=== PATIENT | female | born 1995 | race Caucasian/White ===

== ENCOUNTER 2020-01-01 01:46 | Observation (INO) | payer BC ==
[2020-01-01] MEDS ORDERED: hydrOXYzine HCl 25 MG Tab PO PRN (02:23)
[2020-01-01] MEDS ORDERED: Misoprostol 400 MCG (4 X 100 MCG TAB) RECTAL PRN (06:19)
[2020-01-01] MEDS ORDERED: Acetaminophen 325 MG Tab PO PRN (06:19)
[2020-01-01] MEDS ORDERED: Lidocaine 1% 30 ML SDV INJECT PRN (06:19)
[2020-01-01] MEDS ORDERED: Ondansetron 4 MG/2 ML SDV IVPUSH PRN (06:19)
[2020-01-01] MEDS ORDERED: Tranexamic Acid 1,000 MG in Sodium Chloride 0.9% 100 ML IV PRN (06:19)
[2020-01-01] MEDS ORDERED: Lactated Ringers 1,000 ML IV ONE (06:19)
[2020-01-01] MEDS ORDERED: Carboprost Tromethamine 250 MCG/1 ML Amp IM PRN (06:19)
[2020-01-01] MEDS ORDERED: Methylergonovine 0.2 MG/1 ML Amp IM PRN (06:19)
[2020-01-01] MEDS ORDERED: Sodium Chloride 0.9% 10 ML Syringe FLUSH PRN (06:19)
[2020-01-01] MEDS ORDERED: ePHEDrine 50 MG/ML SDV IVPUSH PRN (06:21)
[2020-01-01] MEDS ORDERED: Promethazine 25 MG/ML SDV IM PRN (06:21)
[2020-01-01] MEDS ORDERED: Naloxone 2 MG/2 ML Syringe IVPUSH PRN (06:21)
[2020-01-01] MEDS ORDERED: Oxytocin/Normal Saline 30 UNIT/500 ML BAG IV SCH (06:30)
[2020-01-01] MEDS ORDERED: Sodium Chloride 0.9% 1,000 ML IV SCH (06:30)
[2020-01-01] MEDS ORDERED: Lactated Ringers 1,000 ML IV SCH (06:30)
[2020-01-01] MEDS ORDERED: Lactated Ringers 500 ML IV SCH ×2 (06:30)
== END 2020-01-01 11:19 | disposition home or self-care (01) ==
LOC: DL.OBCHECK 01:46 → DL.OB 06:20
PROVIDERS: ADMIT Family Medicine; ATTEND Family Medicine
DX: O47.1 False labor at or after 37 completed weeks of gestation (principal); Z3A.38 38 weeks gestation of pregnancy
CPT/HCPCS: 59025; A9270; G0378

== ENCOUNTER 2020-01-02 11:29 | Inpatient (IN) | payer BC ==
[2020-01-02] MEDS ORDERED: hydrOXYzine HCl 25 MG Tab PO ONE (12:00)
[2020-01-02] MEDS ORDERED: Acetaminophen 500 MG Tab PO ONE (14:30)
[2020-01-02] MEDS ORDERED: Tranexamic Acid 1,000 MG in Sodium Chloride 0.9% 100 ML IV PRN (16:12)
[2020-01-02] MEDS ORDERED: Lidocaine 1% 30 ML SDV INJECT PRN (16:12)
[2020-01-02] MEDS ORDERED: Misoprostol 400 MCG (4 X 100 MCG TAB) RECTAL PRN (16:12)
[2020-01-02] MEDS ORDERED: Methylergonovine 0.2 MG/1 ML Amp IM PRN (16:12)
[2020-01-02] MEDS ORDERED: Sodium Chloride 0.9% 10 ML Syringe FLUSH PRN (16:12)
[2020-01-02] MEDS ORDERED: Lactated Ringers 1,000 ML IV ONE (16:12)
[2020-01-02] MEDS ORDERED: Ondansetron 4 MG/2 ML SDV IVPUSH PRN (16:12)
[2020-01-02] MEDS ORDERED: Butorphanol 2 MG/ML SDV IVPUSH PRN ×2 (16:12)
[2020-01-02] MEDS ORDERED: Carboprost Tromethamine 250 MCG/1 ML Amp IM PRN (16:12)
[2020-01-02] MEDS ORDERED: fentaNYL 100 MCG/2 ML SDV IVPUSH PRN (16:12)
[2020-01-02] MEDS ORDERED: Lactated Ringers 1,000 ML IV SCH (16:15)
[2020-01-02] MEDS ORDERED: Oxytocin/Normal Saline 30 UNIT/500 ML BAG IV SCH (16:15)
--- NOTE | 2020-01-02 16:17 | PCM.LDHP ---
L&D History of Present Illness - General Date of Service: 01/02/20 Admit Problem/Dx: Patient Status Order with Admit Dx/Problem 01/02/20 16:12 Patient Status [ADT] Routine Admission Diagnosis/Problem Admission Diagnosis/Problem care in third trimester Source of Information: Patient History Limitations: Reports: No Limitations - History of Present Illness Introduction:: 24-year-old at 38w6d presented to L&D with increase contractions. Patient was here from 200 - 1100 on 12/31/2019 due to increased contractions. She initially had cervical change; however, her contractions then spaced and she had no change for 6 hours so was discharged home. Patient returned today with contractions 5 - 10 minutes apart but increasing in intensity. No vaginal bleeding or leaking of fluid. Baby has been active. No headache or vision changes. Patient was monitored for 5 hours. Initially had no cervical change; however, contractions were a bit more frequent so at 1600, she was rechecked and noted to be 5 cm. Pain Score: 5 - Related Data Allergies/Adverse Reactions: Allergies Allergy/AdvReac Type Severity Reaction Status Date / Time No Known Allergies Allergy Verified 01/02/20 18:33 Home Medications: Home Meds FLUoxetine [PROzac] 20 mg PO BEDTIME 01/02/20 [History] Vit with Ca/FA/Iron [ Plus Iron] 1 tab PO DAILY 01/02/20 [History] Past Medical History - Past Health History Medical/Surgical History: Denies Medical/Surgical History Respiratory History: Reports: Other (See Below) Other Respiratory History: COVID-19- 12/21/2019- out of isolation [employer] History: Reports: Neurological History: Reports: Other (See Below) Other Neuro History: closed head injury- & Psychiatric History: Reports: Anxiety Hematologic History: Reports: Anemia - Past Surgical History HEENT Surgical History: Reports: Other (See Below) Other HEENT Surgeries/Procedures: wisdom teeth removed Social & Family History - Family History Family Medical History: Unobtainable - Caffeine Use Caffeine Use: Reports: Coffee H&P Review of Systems - Review of Systems: Review Of Systems: See Below General: Reports: No Symptoms HEENT: Reports: No Symptoms Pulmonary: Reports: No Symptoms Cardiovascular: Reports: No Symptoms Gastrointestinal: Reports: No Symptoms Genitourinary: Reports: No Symptoms Musculoskeletal: Reports: No Symptoms Skin: Reports: No Symptoms L&D Exam - Exam Exam: See Below - Vital Signs Vital Signs: Last Vital Signs Temp 36.1 C 01/02/20 13:25 Pulse 101 H 01/02/20 13:25 Resp 16 01/02/20 13:25 BP 134/76 01/02/20 13:25 Pulse Ox - OB Specific Contraction Duration (sec): 40-50 Contraction Frequency (min): irreg Contraction Intensity: Mild Movement: Active Heart Tones: Present Heart Tones per Min: 140 Heart Rate (FHR) Variability: Moderate (6-25 bmp) Presentation: Vertex - Hook Score Hook Score Cervix Position: Midposition Hook Score Consistency: Soft Hook Score Effacement: >80% Hook Score Dilation: 3-4 cm Hook Score 's Station: -2 Hook Score Total: 9 - Exam General: Alert, Oriented Lungs: Clear to Auscultation, Normal Respiratory Effort Cardiovascular: Regular Rate, Regular Rhythm. No: Systolic Murmur, Diastolic Murmur GI/Abdominal Exam: Soft Back Exam: Normal Inspection, Full Range of Motion Extremities: Normal Inspection, Normal Range of Motion, Non-Tender, No Pedal Edema Skin: Warm, Dry, Intact Psychiatric: Alert, Normal Affect, Anxious - Patient Data Result Diagrams: 01/02/20 16:40 - Problem List (1) care in third trimester SNOMED Code(s): 855281511, 82346080, 37215076, 727800570, 313763116 ICD Code: Z34.93 - ENCNTR FOR SUPRVSN OF NORMAL PREG, UNSP, THIRD TRIMESTER Status: Acute Current Visit: Yes (2) Anemia affecting in third trimester SNOMED Code(s): 56431027, 01434466 ICD Code: O99.013 - ANEMIA COMPLICATING , THIRD TRIMESTER Status: Acute Current Visit: Yes (3) History of 2019 novel coronavirus disease (COVID-19) SNOMED Code(s): 778873885092846432 ICD Code: Z86.19 - PERSONAL HISTORY OF OTHER INFECTIOUS AND PARASITIC DISEASES Status: Acute Current Visit: Yes Problem List Initiated/Reviewed/Updated: Yes Orders Last 24hrs: Active Orders 24 hr Category Date Time Status Patient Status [ADT] Routine ADT 01/02/20 16:12 Ordered Communication Order [RC] ASDIRECTED Care 01/02/20 16:12 Ordered Heart Tones [RC] PER UNIT ROUTINE Care 01/02/20 16:12 Ordered Nitrous Oxide Delivery [RC] ASDIRECTED Care 01/02/20 16:14 Ordered Notify Provider Vital Signs OB [RC] ASDIRECTED Care 01/02/20 16:12 Ordered Notify Provider [RC] PRN Care 01/02/20 16:12 Ordered OB Check [OM.PC] Click to Edit Care 01/02/20 11:53 Ordered OB Discontinue Nitrous Oxide [RC] ASDIRECTED Care 01/02/20 16:14 Ordered Pump Management, Intrathecal [RC] ASDIRECTED Care 01/02/20 16:12 Ordered Up ad Sabina [RC] ASDIRECTED Care 01/02/20 16:12 Ordered Vital Signs [RC] PER UNIT ROUTINE Care 01/02/20 16:12 Ordered Regular Diet [DIET] Diet 01/02/20 Dinner Ordered CBC W/O DIFF,HEMOGRAM [HEME] Routine Lab 01/02/20 16:12 Ordered Acetaminophen [TylenoL] Med 01/02/20 16:12 Ordered 650 mg PO Q4H PRN Butorphanol [Stadol] Med 01/02/20 16:12 Ordered 0.5 mg IVPUSH Q3H PRN Butorphanol [Stadol] Med 01/02/20 16:12 Ordered 1 mg IVPUSH Q3H PRN Carboprost Tromethamine [Hemabate DS] Med 01/02/20 16:12 Ordered 250 mcg IM ASDIRECTED PRN Lactated Ringers @ 125 MLS/HR(1000ml) Med 01/02/20 16:15 Ordered Lactated Ringers [Ringers, Lactated] 1,000 ml IV ASDIRECTED Lactated Ringers [Ringers, Lactated] 1,000 ml Med 01/02/20 16:12 Ordered IV BOLUS Lidocaine 1% [Xylocaine-MPF 1%] Med 01/02/20 16:12 Ordered 30 ml INJECT ASDIRECTED PRN Methylergonovine [Methergine] Med 01/02/20 16:12 Ordered 0.2 mg IM ASDIRECTED PRN Ondansetron [Zofran] Med 01/02/20 16:12 Ordered 4 mg IVPUSH Q4H PRN Oxytocin 30 Units in NS @ 2 MUNITS/MIN(500ml) Med 01/02/20 16:15 Ordered Oxytocin/Normal Saline [Pitocin in NS 30 UNIT/500 ML] 30 unit in 500 ml IV TITRATE Sodium Chloride 0.9% [Saline Flush] Med 01/02/20 16:12 Ordered 10 ml FLUSH ASDIRECTED PRN Tranexamic Acid [Cyklokapron] 1,000 mg Med 01/02/20 16:12 Ordered Sodium Chloride 0.9% [Normal Saline] 100 ml IV ONETIME fentaNYL [Sublimaze] Med 01/02/20 16:12 Ordered 100 mcg IVPUSH Q1H PRN miSOPROStoL [Cytotec] Med 01/02/20 16:12 Ordered 800 mcg RECTAL ASDIRECTED PRN Saline Lock Insert [OM.PC] Routine Oth 01/02/20 16:12 Ordered Resuscitation Status Routine Resus Stat 01/02/20 16:12 Ordered Assessment/Plan Comment:: 24-year-old at 38w6d in active labor 1. Initiate routine intrapartum orders 2. AROM for augmentation when able 3. Plans for intrathecal 4. Expectant management. Anticipate . Carlyn Ballard MD
[2020-01-02] MEDS ORDERED: Calcium Carbonate 500 MG Tab.Chew PO ONE (17:36)
[2020-01-02] MEDS ORDERED: fentaNYL 100 MCG/2 ML SDV ONE (19:10)
[2020-01-02] MEDS ORDERED: Sodium Bicarbonate 4.2% 2.5 MEQ/5 ML SDV ONE (19:10)
[2020-01-02] MEDS ORDERED: EPINEPHrine 1 MG/1 ML Amp ONE (19:10)
--- NOTE | 2020-01-02 19:34 | PCM.SN.2 ---
- Free Text/Narrative Note: Intrathecal. Sitting position, sterile prep and drape. 1% lidocaine w bicarb for skinwheal to L2 L3 interspace. Introducer, 24 ga pencan x 2. Pos CSF, neg heme, neg parasthesia. 0.1 ml pf 1:1000 epi, 20 mcg pf sufenta, 30 mcg pf fentanyl, 0.4 ml pf NS and 6 mg of 0.75% pf bupivacaine injected after CSF aspiration. Pt to L lateral position. Procedure time 1905 to 193
[2020-01-02] MEDS ORDERED: Oxytocin 10 Units/1 ML SDV IM PRN (23:15)
[2020-01-02] MEDS ORDERED: Simethicone 80 MG Tab.Chew PO PRN (23:15)
[2020-01-02] MEDS ORDERED: hydrOXYzine HCl 25 MG Tab PO PRN (23:16)
--- NOTE | 2020-01-02 23:32 | PCM.DEL ---
L & D Note - General Info Date of Service: 01/02/20 Mother's Due Date: 01/10/20 - Delivery Note Labor: Spontaneous, Induced by ARM Delivery Outcome: Livebirth Delivery Method: Spontaneous Vaginal Delivery-Single Presentation: Vertex Nuchal Cord: None Anesthesia Type: Intrathecal Amniotic Fluid Description: Clear Episiotomy Type: None Laceration: 2nd Degree, Labial, Vaginal (Complex Y-shaped 2nd degree laceration; high on right side) Suture type: Vicryl Suture size: 4-0 (x2) Placenta: Intact, Spontaneous Cord: 3 Vessels Estimated Blood Loss: 525 Resuscitation Needed: No [place]: Bulb Syringe, Stimulated Provider: Carlyn Ballard Score 1 min: 9 Score 5 min: 9 Delivery Comments (Free Text/Narrative):: Patient presented at 38w6d with increased contractions. After monitoring for several hours, patient was determined to be in active labor. AROM was performed at 1700. She received her intrathecal at 1924. Patient progressed to complete dilation. After pushing for 1 hour with good progress, patient delivered a viable male infant with Apgars of 9 and 9 at 1 and 5 minutes respectively. Baby was placed on patient's chest. After pulsating ceased, umbilical cord was clamped x 2 and cut. Cord blood was collected. Placenta delivered spontaneously 5 minutes later. Bleeding was noted to be brisk. A small amount of clots were removed from the lower uterine segment. Pitocin was bolused. Uterus was noted to be firm but bleeding persisted so thorough inspection of the vaginal was noted. A high vaginal laceration on the right with a standard 2nd degree laceration on the left were noted. The high right vaginal laceration was repaired with 3-0 Vicryl running locked sutures. The left vaginal laceration was repaired in the usual fashion. A right labial laceration was also noted. After applying pressure for 2 minutes, persistent bleeding was noted so repair was performed using 4-0 Vicryl with running sutures. Bleeding was noted to be appropriate and uterus was noted to be firm. Patient tolerated the procedure well. Only complication was mild PPH due to vaginal lacerations. - General Info Date of Service: 01/02/20 - Patient Data Vitals - Most Recent: Last Vital Signs Temp 36.9 C 01/02/20 19:10 Pulse 77 01/02/20 20:00 Resp 18 01/02/20 20:00 BP 102/46 L 01/02/20 20:00 Pulse Ox 98 01/02/20 20:00 Weight - Most Recent: 91.626 kg Lab Results Last 24 Hours: Laboratory Results - last 24 hr 01/02/20 Range/Units 16:40 WBC 14.3 H (5.0-10.0) 10^3/uL RBC 4.20 (4.2-5.4) 10^6/uL Hgb 12.8 (12.0-16.0) g/dL Hct 36.7 L (37.0-47.0) % MCV 87.4 (80-100) fL MCH 30.5 (27.0-34.0) pg MCHC 34.9 (33.0-35.0) g/dL Plt Count 171 (150-450) 10^3/uL Med Orders - Current: Current Medications Acetaminophen (Tylenol) 650 mg PO Q4H PRN PRN Reason: Pain (Mild 1-3) and fever Benzocaine/Menthol (Dermoplast Pain Relief [place]) 0 gm TOP Q4H PRN PRN Reason: Perineal comfort measures Carboprost Tromethamine (Hemabate Ds) 250 mcg IM ASDIRECTED PRN PRN Reason: HEMORRHAGE Docusate Sodium (Colace) 100 mg PO BID PRN PRN Reason: Constipation Hydroxyzine HCl (Atarax) 50 mg PO BEDTIME PRN PRN Reason: Insomnia Oxytocin/Sodium Chloride (Pitocin In Ns 30 Unit/500 Ml) 30 unit in 500 mls @ 2 mls/hr IV TITRATE AMBER; Protocol Last Admin: 01/02/20 22:10 Dose: 1 munits/min, 1 mls/hr Documented by: Ibuprofen (Motrin) 800 mg PO Q8H PRN PRN Reason: Mild Pain or Fever Methylergonovine Maleate (Methergine) 0.2 mg IM ASDIRECTED PRN PRN Reason: Hemorrhage Misoprostol (Cytotec) 800 mcg RECTAL ASDIRECTED PRN PRN Reason: Hemorrhage Ondansetron HCl (Zofran) 4 mg IVPUSH Q4H PRN PRN Reason: Nausea/Vomiting Last Admin: 01/02/20 19:03 Dose: 4 mg Documented by: Oxytocin (Pitocin) 10 unit IM ONETIME PRN PRN Reason: Bleeding Prenat Multivit/Security Systems Technician/Iron/Folic Ac ( Plus Iron) 1 each PO DAILY AMBER Simethicone (Simethicone) 80 mg PO Q4H PRN PRN Reason: Gas Sodium Chloride (Saline Flush) 10 ml FLUSH ASDIRECTED PRN PRN Reason: Keep Vein Open Discontinued Medications Acetaminophen (Tylenol Extra Strength) 1,000 mg PO ONETIME ONE Stop: 01/02/20 14:31 Last Admin: 01/02/20 14:26 Dose: 1,000 mg Documented by: Butorphanol Tartrate (Stadol) 0.5 mg IVPUSH Q3H PRN PRN Reason: Pain Butorphanol Tartrate (Stadol) 1 mg IVPUSH Q3H PRN PRN Reason: Pain Calcium Carbonate/Glycine (Tums) 1,000 mg PO ONETIME ONE Stop: 01/02/20 17:37 Last Admin: 01/02/20 17:52 Dose: 1,000 mg Documented by: Epinephrine HCl (Adrenalin) Confirm Administered Dose 1 mg .ROUTE .STK-MED ONE Stop: 01/02/20 19:11 Last Admin: 01/02/20 19:59 Dose: Not Given Documented by: Fentanyl (Sublimaze) 100 mcg IVPUSH Q1H PRN PRN Reason: Pain (moderate 4-6) Last Admin: 01/02/20 17:53 Dose: 100 mcg Documented by: Fentanyl (Sublimaze) Confirm Administered Dose 100 mcg .ROUTE .STK-MED ONE Stop: 01/02/20 19:11 Last Admin: 01/02/20 20:00 Dose: Not Given Documented by: Hydroxyzine HCl (Atarax) 50 mg PO ONETIME ONE Stop: 01/02/20 12:01 Last Admin: 01/02/20 12:07 Dose: 50 mg Documented by: Lactated Ringer's (Ringers, Lactated) 1,000 mls @ 999 mls/hr IV BOLUS ONE Stop: 01/02/20 17:12 Last Admin: 01/02/20 19:03 Dose: 999 mls/hr Documented by: Lactated Ringer's (Ringers, Lactated) 1,000 mls @ 125 mls/hr IV ASDIRECTED AMBER Last Admin: 01/02/20 19:15 Dose: 125 mls/hr Documented by: Tranexamic Acid 1,000 mg/ (Sodium Chloride) 110 mls @ 660 mls/hr IV ONETIME PRN PRN Reason: Bleeding Lidocaine HCl (Xylocaine-Mpf 1%) 30 ml INJECT ASDIRECTED PRN PRN Reason: Perineal Repair Sodium Bicarbonate (Sodium Bicarbonate 4.2%) Confirm Administered Dose 2.5 meq .ROUTE .STK-MED ONE Stop: 01/02/20 19:11 Last Admin: 01/02/20 20:00 Dose: Not Given Documented by: Sufentanil Citrate (Sufenta) Confirm Administered Dose 50 mcg .ROUTE .STK-MED ONE Stop: 01/02/20 19:11 Last Admin: 01/02/20 20:02 Dose: Not Given Documented by: - Problem List & Annotations (1) care in third trimester SNOMED Code(s): 789351522, 82175516, 92430372, 909602491, 174517616 Code(s): Z34.93 - ENCNTR FOR SUPRVSN OF NORMAL PREG, UNSP, THIRD TRIMESTER Status: Acute Current Visit: Yes (2) Anemia affecting in third trimester SNOMED Code(s): 32806954, 01039714 Code(s): O99.013 - ANEMIA COMPLICATING , THIRD TRIMESTER Status: Acute Current Visit: Yes (3) History of 2019 novel coronavirus disease (COVID-19) SNOMED Code(s): 036754758776415943 Code(s): Z86.19 - PERSONAL HISTORY OF OTHER INFECTIOUS AND PARASITIC DISEASES Status: Acute Current Visit: Yes (4) (normal spontaneous vaginal delivery) SNOMED Code(s): 75128128, 220965846 Code(s): O80 - ENCOUNTER FOR FULL-TERM UNCOMPLICATED DELIVERY Status: Acute Current Visit: Yes (5) Obstetric labial laceration, delivered, current hospitalization SNOMED Code(s): 154324993, 078346851, 485199883 Code(s): O70.0 - FIRST DEGREE PERINEAL LACERATION DURING DELIVERY Status: Acute Current Visit: Yes (6) High vaginal laceration during delivery SNOMED Code(s): 402077889 Code(s): O71.4 - OBSTETRIC HIGH VAGINAL LACERATION ALONE Status: Acute Current Visit: Yes (7) Vaginal laceration SNOMED Code(s): 164996792 Code(s): S31.41XA - LACERATION W/O FOREIGN BODY OF VAGINA AND VULVA, INIT ENCNTR Status: Acute Current Visit: Yes (8) PPH ( hemorrhage) SNOMED Code(s): 09969349 Code(s): O72.1 - OTHER IMMEDIATE HEMORRHAGE Status: Acute Current Visit: Yes - Problem List Review Problem List Initiated/Reviewed/Updated: Yes - My Orders Last 24 Hours: My Active Orders 01/02/20 16:12 Patient Status [ADT] Routine Notify Provider Vital Signs OB [RC] ASDIRECTED Up ad Sabina [RC] ASDIRECTED Acetaminophen [TylenoL] 650 mg PO Q4H PRN Carboprost Tromethamine [Hemabate DS] 250 mcg IM ASDIRECTED PRN Methylergonovine [Methergine] 0.2 mg IM ASDIRECTED PRN Ondansetron [Zofran] 4 mg IVPUSH Q4H PRN Sodium Chloride 0.9% [Saline Flush] 10 ml FLUSH ASDIRECTED PRN miSOPROStoL [Cytotec] 800 mcg RECTAL ASDIRECTED PRN Saline Lock Insert [OM.PC] Routine Resuscitation Status Routine 01/02/20 16:15 Oxytocin/Normal Saline [Pitocin in NS 30 UNIT/500 ML] 30 unit in 500 ml IV TITRATE 01/02/20 Dinner Regular Diet [DIET] 01/02/20 23:15 Vital Signs [RC] PFP Benzocaine/Menthol [Dermoplast Pain Relief [place]] See Dose Instructions TOP Q4H PRN Docusate Sodium [Colace] 100 mg PO BID PRN Ibuprofen [Motrin] 800 mg PO Q8H PRN Oxytocin [Pitocin] 10 unit IM ONETIME PRN Simethicone 80 mg PO Q4H PRN Assess Lochia [WOMSER] Per Unit Routine Assess Uterine Involution [WOMSER] Per Unit Routine Breast Pump [WOMSER] Per Unit Routine Ice Therapy [OM.PC] Per Unit Routine Perineal Care [OM.PC] Per Unit Routine Sitz Bath [OM.PC] Per Unit Routine 01/02/20 23:16 hydrOXYzine HCL [Atarax] 50 mg PO BEDTIME PRN 01/03/20 09:00 Vit with Ca/FA/Iron [ Plus Iron] 1 each PO DAILY 01/03/20 10:00 CBC W/O DIFF,HEMOGRAM [HEME] Routine - Assessment Assessment:: 24-year-old, now , status post at 38w6d --Mild PPH from complex 2nd degree laceration with high vaginal laceration on right - Plan Plan:: 1. Initiate routine cares 2. Check CBC in AM 3. Plans to breastfeed 4. Anticipate discharge 01/04/2020 Carlyn Ballard MD
[2020-01-03] MEDS: Ibuprofen 800 MG Tab PO PRN ×3 (00:15→16:55)
[2020-01-03] MEDS ORDERED: Witch Hazel Medicated Pads 100/Jar TOP PRN (01:07)
[2020-01-03] MEDS: Benzocaine/Menthol 20%-0.5% Spray 56 GM Canister TOP PRN (01:07)
[2020-01-03] MEDS: Acetaminophen 325 MG Tab PO PRN ×5 (05:35→21:13)
[2020-01-03] MEDS: Prenatal Multivitamin with Calcium/Folic Acid/Iron Tab PO SCH (08:44)
[2020-01-03] MEDS: Docusate Sodium 100 MG Cap PO PRN ×2 (08:44→21:14)
[2020-01-04] MEDS: Ibuprofen 800 MG Tab PO PRN ×2 (01:43→10:56)
[2020-01-04] MEDS: Acetaminophen 325 MG Tab PO PRN ×3 (01:44→10:56)
[2020-01-04] MEDS: Docusate Sodium 100 MG Cap PO PRN (07:38)
[2020-01-04] MEDS: Prenatal Multivitamin with Calcium/Folic Acid/Iron Tab PO SCH ×2 (07:38→09:24)
--- NOTE | 2020-01-04 08:41 | PCM.PNPP ---
- Patient Data Vital Signs - Most Recent: Last Vital Signs Temp 37.1 C 01/03/20 19:31 Pulse 82 01/03/20 19:31 Resp 16 01/03/20 19:31 BP 117/63 01/03/20 19:31 Pulse Ox 98 01/03/20 19:31 Weight - Most Recent: 91.626 kg Med Orders - Current: Current Medications Acetaminophen (Tylenol) 650 mg PO Q4H PRN PRN Reason: Pain (Mild 1-3) and fever Last Admin: 01/04/20 07:38 Dose: 650 mg Documented by: Benzocaine/Menthol (Dermoplast Pain Relief [place]) 0 gm TOP Q4H PRN PRN Reason: Perineal comfort measures Last Admin: 01/03/20 01:07 Dose: 1 applic Documented by: Carboprost Tromethamine (Hemabate Ds) 250 mcg IM ASDIRECTED PRN PRN Reason: HEMORRHAGE Docusate Sodium (Colace) 100 mg PO BID PRN PRN Reason: Constipation Last Admin: 01/04/20 07:38 Dose: 100 mg Documented by: Hydroxyzine HCl (Atarax) 50 mg PO BEDTIME PRN PRN Reason: Insomnia Oxytocin/Sodium Chloride (Pitocin In Ns 30 Unit/500 Ml) 30 unit in 500 mls @ 2 mls/hr IV TITRATE AMBER; Protocol Last Titration: 01/03/20 00:05 Dose: 0 munits/min, 0 mls/hr Documented by: Ibuprofen (Motrin) 800 mg PO Q8H PRN PRN Reason: Mild Pain or Fever Last Admin: 01/04/20 01:43 Dose: 800 mg Documented by: Methylergonovine Maleate (Methergine) 0.2 mg IM ASDIRECTED PRN PRN Reason: Hemorrhage Misoprostol (Cytotec) 800 mcg RECTAL ASDIRECTED PRN PRN Reason: Hemorrhage Ondansetron HCl (Zofran) 4 mg IVPUSH Q4H PRN PRN Reason: Nausea/Vomiting Last Admin: 01/02/20 19:03 Dose: 4 mg Documented by: Oxytocin (Pitocin) 10 unit IM ONETIME PRN PRN Reason: Bleeding Prenat Multivit/Cache/Iron/Folic Ac ( Plus Iron) 1 each PO DAILY AMBER Last Admin: 01/04/20 07:38 Dose: 1 each Documented by: Simethicone (Simethicone) 80 mg PO Q4H PRN PRN Reason: Gas Sodium Chloride (Saline Flush) 10 ml FLUSH ASDIRECTED PRN PRN Reason: Keep Vein Open Witch Rajwinder (Tucks) 1 pad TOP ASDIRECTED PRN PRN Reason: Other Last Admin: 01/03/20 01:31 Dose: 1 applic Documented by: Discontinued Medications Acetaminophen (Tylenol Extra Strength) 1,000 mg PO ONETIME ONE Stop: 01/02/20 14:31 Last Admin: 01/02/20 14:26 Dose: 1,000 mg Documented by: Butorphanol Tartrate (Stadol) 0.5 mg IVPUSH Q3H PRN PRN Reason: Pain Butorphanol Tartrate (Stadol) 1 mg IVPUSH Q3H PRN PRN Reason: Pain Calcium Carbonate/Glycine (Tums) 1,000 mg PO ONETIME ONE Stop: 01/02/20 17:37 Last Admin: 01/02/20 17:52 Dose: 1,000 mg Documented by: Epinephrine HCl (Adrenalin) Confirm Administered Dose 1 mg .ROUTE .STK-MED ONE Stop: 01/02/20 19:11 Last Admin: 01/02/20 19:59 Dose: Not Given Documented by: Fentanyl (Sublimaze) 100 mcg IVPUSH Q1H PRN PRN Reason: Pain (moderate 4-6) Last Admin: 01/02/20 17:53 Dose: 100 mcg Documented by: Fentanyl (Sublimaze) Confirm Administered Dose 100 mcg .ROUTE .STK-MED ONE Stop: 01/02/20 19:11 Last Admin: 01/02/20 20:00 Dose: Not Given Documented by: Hydroxyzine HCl (Atarax) 50 mg PO ONETIME ONE Stop: 01/02/20 12:01 Last Admin: 01/02/20 12:07 Dose: 50 mg Documented by: Lactated Ringer's (Ringers, Lactated) 1,000 mls @ 999 mls/hr IV BOLUS ONE Stop: 01/02/20 17:12 Last Admin: 01/02/20 19:03 Dose: 999 mls/hr Documented by: Lactated Ringer's (Ringers, Lactated) 1,000 mls @ 125 mls/hr IV ASDIRECTED AMBER Last Admin: 01/02/20 19:15 Dose: 125 mls/hr Documented by: Tranexamic Acid 1,000 mg/ (Sodium Chloride) 110 mls @ 660 mls/hr IV ONETIME PRN PRN Reason: Bleeding Lidocaine HCl (Xylocaine-Mpf 1%) 30 ml INJECT ASDIRECTED PRN PRN Reason: Perineal Repair Sodium Bicarbonate (Sodium Bicarbonate 4.2%) Confirm Administered Dose 2.5 meq .ROUTE .STK-MED ONE Stop: 01/02/20 19:11 Last Admin: 01/02/20 20:00 Dose: Not Given Documented by: Sufentanil Citrate (Sufenta) Confirm Administered Dose 50 mcg .ROUTE .STK-MED ONE Stop: 01/02/20 19:11 Last Admin: 01/02/20 20:02 Dose: Not Given Documented by: - Infant Interaction Support Person: - Recovery Exam Fundal Tone: Firm Fundal Level: 1 Fingerbreadths Below Umbilicus Fundal Placement: Midline Lochia Amount: Small Lochia Color: Rubra/Red Perineum Description: Intact, Minimal Bruising/Swelling Bladder Status: Nonpalpable Urinary Elimination: Not Voiding - Problem List & Annotations (1) care in third trimester SNOMED Code(s): 285435986, 75477250, 64779485, 557124406, 173896395 Code(s): Z34.93 - ENCNTR FOR SUPRVSN OF NORMAL PREG, UNSP, THIRD TRIMESTER Status: Acute Current Visit: Yes (2) Anemia affecting in third trimester SNOMED Code(s): 17863436, 85998298 Code(s): O99.013 - ANEMIA COMPLICATING , THIRD TRIMESTER Status: Acute Current Visit: Yes (3) History of 2019 novel coronavirus disease (COVID-19) SNOMED Code(s): 697941516993226623 Code(s): Z86.19 - PERSONAL HISTORY OF OTHER INFECTIOUS AND PARASITIC DISEASES Status: Acute Current Visit: Yes (4) (normal spontaneous vaginal delivery) SNOMED Code(s): 16672503, 467199454 Code(s): O80 - ENCOUNTER FOR FULL-TERM UNCOMPLICATED DELIVERY Status: Acute Current Visit: Yes (5) Obstetric labial laceration, delivered, current hospitalization SNOMED Code(s): 587492146, 253868114, 434811037 Code(s): O70.0 - FIRST DEGREE PERINEAL LACERATION DURING DELIVERY Status: Acute Current Visit: Yes (6) High vaginal laceration during delivery SNOMED Code(s): 018743349 Code(s): O71.4 - OBSTETRIC HIGH VAGINAL LACERATION ALONE Status: Acute Current Visit: Yes (7) Vaginal laceration SNOMED Code(s): 947314838 Code(s): S31.41XA - LACERATION W/O FOREIGN BODY OF VAGINA AND VULVA, INIT ENCNTR Status: Acute Current Visit: Yes (8) PPH ( hemorrhage) SNOMED Code(s): 26999041 Code(s): O72.1 - OTHER IMMEDIATE HEMORRHAGE Status: Acute Current Visit: Yes - My Orders Last 24 Hours: My Active Orders 01/03/20 09:00 Vit with Ca/FA/Iron [ Plus Iron] 1 each PO DAILY - Assessment Assessment:: 24-year-old, now , status post at 38w6d --Mild PPH from complex 2nd degree laceration with high vaginal laceration on right - Plan Plan:: 1. Initiate routine cares 2. Check CBC in AM 3. Plans to breastfeed 4. Anticipate discharge 01/04/2020 Carlyn Ballard MD
--- NOTE | 2020-01-04 08:44 | PCM.DCSUM1 ---
Discharge Summary - Hospital Course Diagnosis: Stroke: No - Discharge Data Discharge Disposition: Home, Self-Care 01 Condition: Good - Referral to Home Health Primary Care Physician: Rayna Lord MD - Discharge Diagnosis/Problem(s) (1) care in third trimester SNOMED Code(s): 637576321, 41294304, 46050548, 355686043, 269703196 ICD Code: Z34.93 - ENCNTR FOR SUPRVSN OF NORMAL PREG, UNSP, THIRD TRIMESTER Status: Acute Current Visit: Yes (2) Anemia affecting in third trimester SNOMED Code(s): 67979578, 94959844 ICD Code: O99.013 - ANEMIA COMPLICATING , THIRD TRIMESTER Status: Acute Current Visit: Yes (3) History of 2019 novel coronavirus disease (COVID-19) SNOMED Code(s): 150420778745844162 ICD Code: Z86.19 - PERSONAL HISTORY OF OTHER INFECTIOUS AND PARASITIC DISEASES Status: Acute Current Visit: Yes (4) (normal spontaneous vaginal delivery) SNOMED Code(s): 18202433, 953330978 ICD Code: O80 - ENCOUNTER FOR FULL-TERM UNCOMPLICATED DELIVERY Status: Acute Current Visit: Yes (5) Obstetric labial laceration, delivered, current hospitalization SNOMED Code(s): 590955426, 241575715, 981360864 ICD Code: O70.0 - FIRST DEGREE PERINEAL LACERATION DURING DELIVERY Status: Acute Current Visit: Yes (6) High vaginal laceration during delivery SNOMED Code(s): 362656884 ICD Code: O71.4 - OBSTETRIC HIGH VAGINAL LACERATION ALONE Status: Acute Current Visit: Yes (7) Vaginal laceration SNOMED Code(s): 694988221 ICD Code: S31.41XA - LACERATION W/O FOREIGN BODY OF VAGINA AND VULVA, INIT ENCNTR Status: Acute Current Visit: Yes (8) PPH ( hemorrhage) SNOMED Code(s): 03719887 ICD Code: O72.1 - OTHER IMMEDIATE HEMORRHAGE Status: Acute Current Visit: Yes - Patient Instructions Diet: Usual Diet as Tolerated Activity: As Tolerated, No Lifting Over 20 Pounds Driving: May Drive Today Showering/Bathing: May Shower Notify Provider of: Fever, Increased Pain, Nausea and/or Vomiting - Discharge Plan *PRESCRIPTION DRUG MONITORING PROGRAM REVIEWED*: Not Applicable *COPY OF PRESCRIPTION DRUG MONITORING REPORT IN PATIENT ALEXANDRO: Not Applicable Home Medications: Home Meds FLUoxetine [PROzac] 20 mg PO BEDTIME 01/02/20 [History] Vit with Ca/FA/Iron [ Plus Iron] 1 tab PO DAILY 01/02/20 [History] Acetaminophen [Tylenol] 650 mg PO Q4H PRN tablet 01/04/20 [Rx] Docusate Sodium [Colace] 100 mg PO BID PRN cap 01/04/20 [Rx] Ibuprofen [Motrin] 800 mg PO Q8H PRN tablet 01/04/20 [Rx] witlauren Rajwinder [Tucks] 1 pad TOP ASDIRECTED PRN pad 01/04/20 [Rx] Patient Handouts: Care of a Perineal Tear, Care After Vaginal Delivery Referrals: Carlyn Ballard MD [Physician] - (6-8 weeks for visit or sooner as needed) - Patient Data Vitals - Most Recent: Last Vital Signs Temp 37.1 C 01/03/20 19:31 Pulse 82 01/03/20 19:31 Resp 16 01/03/20 19:31 BP 117/63 01/03/20 19:31 Pulse Ox 98 01/03/20 19:31 Weight - Most Recent: 91.626 kg Med Orders - Current: Current Medications Acetaminophen (Tylenol) 650 mg PO Q4H PRN PRN Reason: Pain (Mild 1-3) and fever Last Admin: 01/04/20 07:38 Dose: 650 mg Documented by: Benzocaine/Menthol (Dermoplast Pain Relief [place]) 0 gm TOP Q4H PRN PRN Reason: Perineal comfort measures Last Admin: 01/03/20 01:07 Dose: 1 applic Documented by: Carboprost Tromethamine (Hemabate Ds) 250 mcg IM ASDIRECTED PRN PRN Reason: HEMORRHAGE Docusate Sodium (Colace) 100 mg PO BID PRN PRN Reason: Constipation Last Admin: 01/04/20 07:38 Dose: 100 mg Documented by: Hydroxyzine HCl (Atarax) 50 mg PO BEDTIME PRN PRN Reason: Insomnia Oxytocin/Sodium Chloride (Pitocin In Ns 30 Unit/500 Ml) 30 unit in 500 mls @ 2 mls/hr IV TITRATE AMBER; Protocol Last Titration: 01/03/20 00:05 Dose: 0 munits/min, 0 mls/hr Documented by: Ibuprofen (Motrin) 800 mg PO Q8H PRN PRN Reason: Mild Pain or Fever Last Admin: 01/04/20 01:43 Dose: 800 mg Documented by: Methylergonovine Maleate (Methergine) 0.2 mg IM ASDIRECTED PRN PRN Reason: Hemorrhage Misoprostol (Cytotec) 800 mcg RECTAL ASDIRECTED PRN PRN Reason: Hemorrhage Ondansetron HCl (Zofran) 4 mg IVPUSH Q4H PRN PRN Reason: Nausea/Vomiting Last Admin: 01/02/20 19:03 Dose: 4 mg Documented by: Oxytocin (Pitocin) 10 unit IM ONETIME PRN PRN Reason: Bleeding Prenat Multivit/[place]/Iron/Folic Ac ( Plus Iron) 1 each PO DAILY AMBER Last Admin: 01/04/20 07:38 Dose: 1 each Documented by: Simethicone (Simethicone) 80 mg PO Q4H PRN PRN Reason: Gas Sodium Chloride (Saline Flush) 10 ml FLUSH ASDIRECTED PRN PRN Reason: Keep Vein Open Witch Rajwinder (Tucks) 1 pad TOP ASDIRECTED PRN PRN Reason: Other Last Admin: 01/03/20 01:31 Dose: 1 applic Documented by: Discontinued Medications Acetaminophen (Tylenol Extra Strength) 1,000 mg PO ONETIME ONE Stop: 01/02/20 14:31 Last Admin: 01/02/20 14:26 Dose: 1,000 mg Documented by: Butorphanol Tartrate (Stadol) 0.5 mg IVPUSH Q3H PRN PRN Reason: Pain Butorphanol Tartrate (Stadol) 1 mg IVPUSH Q3H PRN PRN Reason: Pain Calcium Carbonate/Glycine (Tums) 1,000 mg PO ONETIME ONE Stop: 01/02/20 17:37 Last Admin: 01/02/20 17:52 Dose: 1,000 mg Documented by: Epinephrine HCl (Adrenalin) Confirm Administered Dose 1 mg .ROUTE .STK-MED ONE Stop: 01/02/20 19:11 Last Admin: 01/02/20 19:59 Dose: Not Given Documented by: Fentanyl (Sublimaze) 100 mcg IVPUSH Q1H PRN PRN Reason: Pain (moderate 4-6) Last Admin: 01/02/20 17:53 Dose: 100 mcg Documented by: Fentanyl (Sublimaze) Confirm Administered Dose 100 mcg .ROUTE .STK-MED ONE Stop: 01/02/20 19:11 Last Admin: 01/02/20 20:00 Dose: Not Given Documented by: Hydroxyzine HCl (Atarax) 50 mg PO ONETIME ONE Stop: 01/02/20 12:01 Last Admin: 01/02/20 12:07 Dose: 50 mg Documented by: Lactated Ringer's (Ringers, Lactated) 1,000 mls @ 999 mls/hr IV BOLUS ONE Stop: 01/02/20 17:12 Last Admin: 01/02/20 19:03 Dose: 999 mls/hr Documented by: Lactated Ringer's (Ringers, Lactated) 1,000 mls @ 125 mls/hr IV ASDIRECTED AMBER Last Admin: 01/02/20 19:15 Dose: 125 mls/hr Documented by: Tranexamic Acid 1,000 mg/ (Sodium Chloride) 110 mls @ 660 mls/hr IV ONETIME PRN PRN Reason: Bleeding Lidocaine HCl (Xylocaine-Mpf 1%) 30 ml INJECT ASDIRECTED PRN PRN Reason: Perineal Repair Sodium Bicarbonate (Sodium Bicarbonate 4.2%) Confirm Administered Dose 2.5 meq .ROUTE .STK-MED ONE Stop: 01/02/20 19:11 Last Admin: 01/02/20 20:00 Dose: Not Given Documented by: Sufentanil Citrate (Sufenta) Confirm Administered Dose 50 mcg .ROUTE .STK-MED ONE Stop: 01/02/20 19:11 Last Admin: 01/02/20 20:02 Dose: Not Given Documented by:
[2020-01-04] MEDS: Benzocaine/Menthol 20%-0.5% Spray 56 GM Canister TOP PRN (10:56)
== END 2020-01-04 12:00 | disposition home or self-care (01) | DRG 560 ==
LOC: DL.OBCHECK 11:29 → DL.OB 16:12 → OBSVTOIN 22:20
PROVIDERS: ADMIT Family Medicine; ATTEND Family Medicine
PROC: 10E0XZZ Delivery of Products of Conception, External Approach (ICD-10-PCS; principal; 2020-01-02)
PROC: 10907ZC Drainage of Amniotic Fluid, Therapeutic from Products of Conception, Via Natural or Artificial Opening (ICD-10-PCS; 2020-01-02)
PROC: 0UQGXZZ Repair Vagina, External Approach (ICD-10-PCS; 2020-01-02)
PROC: 0UQMXZZ Repair Vulva, External Approach (ICD-10-PCS; 2020-01-02)
PROC: 3E0R3BZ Introduction of Anesthetic Agent into Spinal Canal, Percutaneous Approach (ICD-10-PCS; 2020-01-02)
PROC: 00HU33Z Insertion of Infusion Device into Spinal Canal, Percutaneous Approach (ICD-10-PCS; 2020-01-02)
DX: O99.02 Anemia complicating childbirth (principal); D64.9 Anemia, unspecified; O71.4 Obstetric high vaginal laceration alone; O72.1 Other immediate postpartum hemorrhage; Z28.82 Immunization not carried out because of caregiver refusal; Z09 Encounter for follow-up examination after completed treatment for conditions other than malignant neoplasm; Z86.19 Personal history of other infectious and parasitic diseases; Z3A.38 38 weeks gestation of pregnancy; Z37.0 Single live birth
CPT/HCPCS: 36415; 59409; 85027; A9270-GY; J2405; J2590; J3010; J7120

== ENCOUNTER 2022-04-06 02:36 | Inpatient (IN) | payer BC ==
[2022-04-06] MEDS ORDERED: Methylergonovine 0.2 MG/1 ML Amp IM PRN (02:53)
[2022-04-06] MEDS ORDERED: Acetaminophen 325 MG Tab PO PRN (02:53)
[2022-04-06] MEDS ORDERED: Sodium Chloride 0.9% 10 ML Syringe FLUSH PRN (02:53)
[2022-04-06] MEDS ORDERED: Lidocaine 1% 30 ML SDV INJECT PRN (02:53)
[2022-04-06] MEDS ORDERED: Tranexamic Acid 1,000 MG in Sodium Chloride 0.9% 100 ML IV PRN (02:53)
[2022-04-06] MEDS ORDERED: Carboprost Tromethamine 250 MCG/1 ML Amp IM PRN (02:53)
[2022-04-06] MEDS ORDERED: Misoprostol 400 MCG (4 X 100 MCG TAB) RECTAL PRN (02:53)
[2022-04-06] MEDS ORDERED: Lactated Ringers 1,000 ML IV ONE (02:53)
[2022-04-06] MEDS ORDERED: Ondansetron 4 MG/2 ML SDV IVPUSH PRN (02:53)
[2022-04-06] MEDS ORDERED: Butorphanol 2 MG/ML SDV IVPUSH PRN (02:53)
[2022-04-06] MEDS ORDERED: Oxytocin/Normal Saline 30 UNIT/500 ML BAG IV SCH (03:00)
[2022-04-06] MEDS ORDERED: Sodium Bicarbonate 4.2% 2.5 MEQ/5 ML SDV ONE ×2 (15:13)
[2022-04-06] MEDS ORDERED: Ondansetron 4 MG/2 ML SDV ONE (15:13)
[2022-04-06] MEDS ORDERED: Bupivacaine 0.25% 10 ML SDV ONE ×2 (15:13→17:05)
[2022-04-06] MEDS: Lactated Ringers 1,000 ML IV SCH ×2 (15:42→19:30)
[2022-04-06] MEDS ORDERED: Ropivacaine 200 MG in Premix Bag 1 BAG EPIDUR SCH ×2 (15:45→18:15)
[2022-04-06] MEDS ORDERED: hydrOXYzine HCl 25 MG Tab PO ONE (17:40)
[2022-04-06] MEDS ORDERED: Phenylephrine HCl In 0.9% NaCl 1 MG/10 ML Syringe IVPUSH PRN (18:11)
[2022-04-06] MEDS ORDERED: ePHEDrine 50 MG/ML SDV IVPUSH PRN (18:11)
[2022-04-06] MEDS ORDERED: Benzocaine/Menthol 20%-0.5% Spray 78 GM Cannister TOP PRN (22:50)
[2022-04-06] MEDS ORDERED: Simethicone 80 MG Tab.Chew PO PRN (22:50)
[2022-04-06] MEDS ORDERED: Oxytocin 10 Units/1 ML SDV IM PRN (22:50)
[2022-04-07] MEDS: Docusate Sodium 100 MG Cap PO PRN ×2 (03:14→20:32)
[2022-04-07] MEDS: Ibuprofen 800 MG Tab PO PRN ×3 (03:14→20:33)
[2022-04-07] MEDS: Acetaminophen 325 MG Tab PO PRN ×2 (08:02→15:15)
[2022-04-07] MEDS: Prenatal Multivitamin with Calcium/Folic Acid/Iron Tab PO SCH (08:03)
[2022-04-07] MEDS: VILAZODONE 40 MG PO SCH (12:30)
[2022-04-08] MEDS: Acetaminophen 325 MG Tab PO PRN ×3 (01:13→15:45)
[2022-04-08] MEDS: Ibuprofen 800 MG Tab PO PRN ×2 (06:11→16:32)
[2022-04-08] MEDS ORDERED: Propranolol 20 MG Tab PO PRN ×2 (08:24→10:31)
[2022-04-08] MEDS ORDERED: VILAZODONE HCL 40 MG PO SCH (09:00)
[2022-04-08] MEDS: Prenatal Multivitamin with Calcium/Folic Acid/Iron Tab PO SCH (09:26)
[2022-04-08] MEDS: Docusate Sodium 100 MG Cap PO PRN (09:26)
[2022-04-08] MEDS: VILAZODONE 40 MG PO SCH ×2 (12:00)
== END 2022-04-08 18:00 | disposition home or self-care (01) | DRG 560 ==
LOC: DL.OB 12:02 → OBSVTOIN 21:35 → DL.OB 21:35
PROVIDERS: ADMIT Family Medicine; ATTEND Family Medicine
PROC: 10E0XZZ Delivery of Products of Conception, External Approach (ICD-10-PCS; principal; 2022-04-06)
DX: O99.344 Other mental disorders complicating childbirth (principal); F41.9 Anxiety disorder, unspecified; Z37.0 Single live birth; Z3A.39 39 weeks gestation of pregnancy; Z86.16 Personal history of COVID-19
CPT/HCPCS: 01967; 36415; 51702; 59409; 85027; A9270-GY; J2405; J2590; J2795; J3490; J7120